=== PATIENT | female | born 1970 | race Caucasian/White ===

== ENCOUNTER → 2020-02-24 13:30 | Outpatient (CLI) | payer OTHER, SELFPAY ==
--- NOTE | ~2020-02-24 | MM_ITS ---
EXAMINATION: MM screening [facility] BI w [facility] HISTORY: Screening mammogram TECHNIQUE: Craniocaudal and mediolateral oblique 3-D tomosynthesis images were obtained and synthetic 2-D images were generated. CAD analysis was submitted and interpreted. COMPARISON: 06/29/2017 BREAST PARENCHYMAL COMPOSITION: The breasts are almost entirely fatty. FINDINGS: RIGHT BREAST: There is no evidence of suspicious mass, calcification, or architectural distortion to suggest malignancy. There has been no significant interval change. LEFT BREAST: A low-density masses present in the middle third of the upper outer breast 8 cm from the nipple. IMPRESSION: 1. Left breast mass. 2. Additional mammographic views and possible breast ultrasound are recommended. BI-RADS Category 0: Incomplete: Needs additional imaging evaluation. Reviewed, dictated and finalized at location A. IMPRESSION: 1. Left breast mass. 2. Additional mammographic views and possible breast ultrasound are recommended . BI-RADS Category 0: Incomplete: Needs additional imaging evaluation.
== END ==
PROVIDERS: PCP Internal Medicine
DX: Z12.31 Encounter for screening mammogram for malignant neoplasm of breast (principal); R92.8 Other abnormal and inconclusive findings on diagnostic imaging of breast
CPT/HCPCS: 77063; 77067

== ENCOUNTER 2020-03-03 13:30 | Outpatient (CLI) | payer OTHER, SELFPAY ==
--- NOTE | ~2020-03-03 | MMUS_ITS ---
EXAMINATION: MM diagnostic mammo unilat LT, US breast LT limited HISTORY: Follow-up left breast mass TECHNIQUE: Additional 3-D tomosynthesis images of the left breast were performed and synthetic 2-D im ages were generated. CAD analysis was submitted and interpreted. High resolution left breast ultrasou nd was performed. COMPARISON: Comparison to multiple prior studies sequentially, with oldest reviewed study dated 06/29. FINDINGS: MAMMOGRAPHIC FINDINGS: Breast composition is almost entirely fatty. There is a circumscribed 5 mm mass in the upper outer qu adrant of the left breast, middle third. No suspicious calcifications or architectural distortion. ULTRASOUND: Left breast ultrasound: There are multiple lymph nodes at the 2:00 position of the left breast 14 cm from the nipple and 3:00 , 12 cm from the nipple, likely reactive. The largest measures 1.9 cm. No sonographic correlate to 5 mm mass seen in the breasts. IMPRESSION: 1. Probable benign left breast findings. 2. Recommend 6 month follow-up diagnostic left mammogram and ultrasound recommended BI-RADS category 3, probably benign findings. Reviewed, dictated and finalized at location A. IMPRESSION: 1. Probable benign left breast findings. 2. Recommend 6 month follow-up diagnostic left mammogram and ultrasound recomme nded BI-RADS category 3, probably benign findings.
== END 2020-03-03 13:31 | disposition home or self-care (01) ==
PROVIDERS: PCP Internal Medicine
DX: N63.21 Unspecified lump in the left breast, upper outer quadrant (principal)
CPT/HCPCS: 76642; 77065

== ENCOUNTER 2020-09-19 06:47 | Outpatient (NON) | payer OTHER, SELFPAY ==
[2020-09-19 22:14] LABS: SARS-CoV-2 RNA PCR Negative
== END 2020-09-19 06:48 ==
LOC: ANHCOVIDDT 06:48
PROVIDERS: PCP Internal Medicine; Visit Provider Internal Medicine
DX: Z20.828 Contact with and (suspected) exposure to other viral communicable diseases (principal); R05 Cough
CPT/HCPCS: 87635; C9803; U0003

== ENCOUNTER → 2021-07-21 06:56 | Outpatient (CLI) | payer OTHER, SELFPAY ==
--- NOTE | ~2021-07-21 | MR_ITS ---
EXAMINATION: MR ankle LT wo con DATE: 07/21/2021 07:43 INDICATION: Posterior tibial tendinopathy with left ankle pain TECHNIQUE: Magnetic resonance imaging (MRI) of the left ankle was performed without intravenous contr ast. Sequences included sagittal, coronal, and axial proton-density weighted fast spin echo without a nd with fat saturation. COMPARISON: None. FINDINGS: Medial ankle ligaments: There is a tear of the superomedial component of the spring ligament complex with cephalad retraction and thickening of the tibia spring component of the otherwise intact superficial deltoid ligament. T he infra plantar lateral and medial plantar oblique components of the spring ligament complex remain normal. The deep deltoid ligament is intact. Lateral ankle ligaments: The anterior and posterior inferior tibiofibular ligaments are normal. The anterior talofibular, calc aneofibular and posterior talofibular ligaments are normal. Tendons: Achilles tendon is normal. Small amount of fluid surrounding the normal peroneus longus and brevis te ndons consistent with mild tenosynovitis. The tibialis anterior and extensor hallucis longus and exte nsor digitorum longus tendons are normal. The flexor digitorum longus and flexor hallucis longus tend ons are normal. Tibialis posterior tenosynovitis with moderate tibialis posterior longitudinal split tearing which extends up to 4 cm cephalad to the level of the tibiotalar joint line. There is also a partial-thickness tear of the tendon which appears to follow the entire portion of the tendon extendi ng to a normal variant type II os navicularis. There is approximately 1.5 cm separation of the ragged tear margins. Plantar fascia: Moderate thickening and increased signal of the proximal plantar aponeurosis without discrete tear. T here is marrow edema in the surrounding plantar fat pad as well as small amount of marrow edema and s mall plantar calcaneal spur at its calcaneal origin. Findings are consistent with chronic enthesopath y with acute plantar fasciitis. Bones/other: There is suggestion of some pes planus and hindfoot valgus although this is more accurately assessed with weightbearing images of the foot. No fracture, osteonecrosis or pathologic marrow replacing proc ess. 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 Intrinsic musculature of the foot is unremarkable. Fluid: Minimal talonavicular joint effusion seen at the lateral side of the superior recess of the joint spa ce from which arises a 16 x 8 x 5 mm ganglion cyst. Otherwise physiologic amount of fluid in the join t spaces. IMPRESSION: 1. Moderate tibialis posterior tendinopathy with longitudinal split tearing and partial thickness tea r involving the component of the tendon extending to a normal variant type II os naviculare. 2. Tear of the superomedial component of the spring ligament complex. 3. Likely secondary pes planus and hindfoot valgus although this is would be more accurately assessed with weightbearing radiographs of the foot. 4. Moderate acute on chronic plantar fasciitis. Reviewed, dictated and finalized at location A. IMPRESSION: 1. Moderate tibialis posterior tendinopathy with longitudinal split tearing and partial thickness tear involving the component of the tendon extending to a no rmal variant type II os naviculare. 2. Tear of the superomedial component of the spring ligament complex. 3. Likely secondary pes planus and hindfoot valgus although this is would be mo re accurately assessed with weightbearing radiographs of the foot. 4. Moderate acute on chronic plantar fasciitis.
== END ==
PROVIDERS: PCP Internal Medicine; Visit Provider Podiatrist Foot & Ankle Surgery
DX: M77.52 Other enthesopathy of left foot and ankle (principal); S93.492A Sprain of other ligament of left ankle, initial encounter; M21.42 Flat foot [pes planus] (acquired), left foot; M21.072 Valgus deformity, not elsewhere classified, left ankle; M72.2 Plantar fascial fibromatosis
CPT/HCPCS: 73721

== ENCOUNTER 2023-02-07 17:27 | Outpatient (CLI) | payer OTHER, SELFPAY ==
--- NOTE | ~2023-02-07 | MM_ITS ---
EXAMINATION: MM screening [facility] BI w [facility] HISTORY: Screening TECHNIQUE: Craniocaudal and mediolateral oblique 3-D tomosynthesis images were obtained and synthetic 2-D images were generated. CAD analysis was submitted and interpreted. COMPARISON: Comparison to multiple prior studies sequentially, with oldest reviewed study dated 06/29. BREAST PARENCHYMAL COMPOSITION: The breasts are almost entirely fatty. FINDINGS: There are benign-appearing partially calcified right breast masses. There is no evidence of suspicious mass, calcification, or architectural distortion to suggest malignancy in either breast. There has been no suspicious interval change. IMPRESSION: 1. No mammographic evidence of malignancy. 2. Recommend routine screening mammography in one year. BI-RADS Category 2: Benign finding(s). Reviewed, dictated and finalized at location A.
== END 2023-02-07 17:28 | disposition home or self-care (01) ==
LOC: ANHIMG 17:30
PROVIDERS: PCP Internal Medicine; Visit Provider Nurse Practitioner Obstetrics & Gynecology
DX: Z12.31 Encounter for screening mammogram for malignant neoplasm of breast (principal)
CPT/HCPCS: 77063; 77067